=== PATIENT | male | born 1990 | race Caucasian/White ===

== ENCOUNTER 2017-12-02 22:54 | Emergency (ER) | payer OTHER ==
[~2017-12-02] VITALS: Ht 177.8 cm; Wt 88.6 kg
[2017-12-02 22:59] VITALS: Ht 177.8 cm; Wt 88.6 kg
[2017-12-02] MEDS ORDERED: PHENERGAN25 M1 PO (23:00)
[2017-12-02] MEDS ORDERED: NAPROSYN500 MG PO (23:51)
[2017-12-03 00:14] VITALS: BP 130/85
== END 2017-12-03 00:15 | disposition home or self-care (01) ==
LOC: D.ER 22:54
DX: S83.91XA Sprain of unspecified site of right knee, initial encounter (principal); V43.62XA Car passenger injured in collision with other type car in traffic accident, initial encounter; Y93.89 Activity, other specified; Y92.410 Unspecified street and highway as the place of occurrence of the external cause; F17.200 Nicotine dependence, unspecified, uncomplicated